=== PATIENT | female | born 1995 | race Caucasian/White ===

== ENCOUNTER 2022-04-25 19:19 | Emergency (ER) | payer MEDICAID, SELFPAY ==
[2022-04-25 19:21] VITALS: BP 142/86; PULSE 77; RESP 16; TEMP 36.6; O2SAT 99; BMI 39.4
--- NOTE | 2022-04-25 20:10 | CT_ITS ---
PROCEDURE INFORMATION: Exam: CT Abdomen And Pelvis With Contrast Exam date and time: 04/25/2022 8:18 PM Age: 26 years old Clinical indication: Abdominal pain; Flank; Patient HX: RT lbp, llq, rlq pain w pain under bilat breast in ribs. PT unable to urinate x 4 days w constipation. HX of ibs. ; Additional info: Abd pain TECHNIQUE: Imaging protocol: Computed tomography of the abdomen and pelvis with contrast. Radiation optimization: All CT scans at this facility use at least one of these dose optimization techniques: automated exposure control; mA and/or kV adjustment per patient size (includes targeted exams where dose is matched to clinical indication); or iterative reconstruction. Contrast material: ISOVUE; Contrast volume: 75 ml; Contrast route: IV; COMPARISON: No relevant prior studies available. FINDINGS: Tubes, catheters and devices: None noted. Lungs: Lung bases appear clear. Heart: No significant coronary calcifications. No cardiomegaly. No significant pericardial effusion. Liver: Normal. No mass. Gallbladder and bile ducts: Cholelithiasis. No ductal dilation. Pancreas: Normal. No ductal dilation. Spleen: Normal. No splenomegaly. Adrenal glands: Normal. No mass. Kidneys and ureters: Normal. No hydronephrosis. Stomach and bowel: Unremarkable. No obstruction. No mucosal thickening. Appendix: Appendix is well visualized. No evidence of appendicitis. Intraperitoneal space: Unremarkable. No free air. No significant fluid collection. Retroperitoneal space: No significant retroperitoneal inflammatory changes are noted. Vasculature: Unremarkable. No abdominal aortic aneurysm. Lymph nodes: Unremarkable. No enlarged lymph nodes. Urinary bladder: Unremarkable as visualized. Reproductive: 4.7 cm left ovarian cyst. Bones/joints: Unremarkable. No acute fracture. Soft tissues: Unremarkable. IMPRESSION: 1. Cholelithiasis. 2. 4.7 cm left ovarian cyst. 3. No CT evidence of appendicitis.
--- NOTE | 2022-04-25 20:11 | PC.NURSE ---
dr Arreola gave verbal orders for lab work on pt after seeing pt at bedside. no medication ordered at this time
[2022-04-25 20:16] LABS: Microscopic, Urine URINE MICROSCOPIC (MICROSCOPIC)
[2022-04-25 20:30] LABS: Alanine Aminotransferase 21 U/L (12-78); Albumin Level 4.4 g/dl (3.5-5.0); Albumin/Globulin Ratio 1.5 (1.1-1.8); Alkaline Phosphatase 76 U/L (38-126); Amylase 76 U/L (30-110); Anion Gap 14.9 mEq/L (5-15); Aspartate Amino Transferase 37 U/L (14-36); Bilirubin,Total 0.2 mg/dl (0.2-1.3); Blood Urea Nitrogen 10 mg/dl (7-17); Calcium 8.7 mg/dl (8.4-10.2); Carbon Dioxide 26 mmol/L (22.0-30.0); Chloride 101 mmol/L (98-107); Creatinine Clearance Estimated 201 mL/min (50-200); Estimated Glomerular Filt Rate 101 ml/min (>60); GFR (African American) 122 ML/MIN (>60); Globulin 2.9 g/dL (1.3-3.2); Glucose 85 mg/dl (74-100); Lipase 95 U/L (23-300); Potassium 3.9 mmoL/L (3.5-5.1); Sodium 138 mmol/L (136-145); Total Protein,Serum 7.3 g/dl (6.3-8.2)
[2022-04-25 20:33] LABS: Urine Pregnancy, HCG Qual. Negative (Negative)
[2022-04-25 20:34] LABS: Appearance,Urine SL CLOUDY (Clear); Bilirubin,Urine Negative (Negative); Blood, Urine Negative (Negative); Color,Urine YELLOW (Yellow); Glucose,Urine (UA) Negative (Negative); Ketones,Urine Negative (Negative); Leukocyte Esterase,Urine 1+ (Negative); Nitrate,Urine POSITIVE (Negative); Protein,Urine TRACE (Negative); Urobilinogen,Urine 0.2 EU/dl (0.2)
[2022-04-25 20:36] LABS: C-Reactive Protein 6.3 mg/L (0-4)
--- NOTE | 2022-04-25 20:41 | [facility].EDABDPAI ---
Discharge Plan Disposition Patient Disposition: Home, Self-Care Prescriptions Prescriptions: New levofloxacin 500 mg tablet 500 mg PO DAILY Qty: 7 0RF Referrals Follow up/Referrals: Provider,Referral, MD [Primary Care Provider] - See instructions Clinical Impressions Clinical Impression: UTI (urinary tract infection), Irritable bowel syndrome (IBS) Instructions Patient Instructions: DI for Urinary Tract Infection (UTI), DI for Acute Abdominal Pain Discharge ED Provider: Travis Arreola Abdominal Pain HPI General Chief Complaint: Abdominal Pain Stated Complaint: cant urinate, adm pain Time Seen by Provider: 04/25/22 20:00 Mode of Arrival: Ambulatory Source of Information: Patient and Medical Record Limitations: No Limitations Description of Symptoms (Recalled from ER Triage Doc. by RN): pt states that she is having severe abdominal pain and pressure in her vagina. the pt states that she thought that she was having a uti and started taking azo sunday the pt states she has a hx of IBS but has not had a bm since sunday when she had to take laxitives. History of Present Illness HPI narrative: over the last few days abd pain with pressure sensation and hx of ibs-d - no fever - feels constipated and diff urinating - MD complaint: abdominal pain Onset (ago): day(s) Consistency: intermittent Location: diffuse Severity: moderate Quality: cramping Associated symptoms: denies other symptoms Related Data Previous Rx's Medication Instructions Recorded levofloxacin 500 mg tablet 500 mg PO DAILY #7 tabs 04/25/22 Allergies Allergy/AdvReac Type Severity Reaction Status Date / Time No Known Allergies Allergy Verified 04/25/22 20:00 [facility] Social History Smoking Status: Current every day smoker alcohol intake: never current occupational status: employed Travel in the last 8 weeks: None ROS Obtained: Yes All systems reviewed & no additional complaints except as documented Physical Exam General General appearance: alert Head Head exam: normocephalic Eye Eye exam: Present PERRL and EOMI; Absent scleral icterus ENT ENT exam: Present mucous membranes moist Neck Neck exam: Present full ROM and trachea midline Respiratory Respiratory exam: Present normal lung sounds bilaterally; Absent respiratory distress Cardiovascular Cardiovascular exam: Present regular rate Abdominal Exam Abdominal exam: Present soft and tenderness; Absent guarding or rebound Abdominal tenderness: Present LUQ and moderate Extremities Exam Extremities exam: Present normal capillary refill Back Exam Back exam: Absent CVA tenderness (L) Neurological Exam Neurological exam: Present alert, oriented X3 and CN II-XII intact Psychiatric Psychiatric exam: Present normal affect Skin Skin exam: Absent rash Medical Decision Making Medical Records Medical records reviewed: Yes I reviewed the patient's medical records. Denzel Inquiry Pt receiving controlled substance: No Vital Signs: 04/25/22 19:21 Temperature 97.9 F Temperature Source Oral Pulse Rate [Left] 77 Respiratory Rate 16 Blood Pressure [Right Arm] 142/86 H Blood Pressure Mean [Right Arm] 104 02 Sat by Pulse Oximetry 99 Oxygen Delivery Method Room Air Lab Data Lab results reviewed: Yes I reviewed the patient's lab results. Lab Results 04/25/22 19:30: Urine Color Yellow, Urine Appearance Sl cloudy, Urine pH 7.0, Ur Specific [place] 1.020, Urine Protein Trace, Urine Glucose (UA) Negative, Urine Ketones Negative, Urine Blood Negative, Urine Nitrate Positive, Urine Bilirubin Negative, Urine Urobilinogen 0.2, Ur Leukocyte Esterase 1+ A, Urine RBC None, Urine WBC 5-10, Ur Squamous Epith Cells Occasional, Urine Bacteria 4+ 04/25/22 19:30: Urine HCG, Qual Negative 04/25/22 19:39: WBC 11.1 H, RBC 4.76, Hgb 13.9, Hct 51.5 H, MCV 108.1 H, MCH 29.1, MCHC 26.9 L, RDW 19.9 H, Plt Count 242, MPV 23.9 H, Neut % (Auto) 61.3, Lymph % (Auto) 33.6, [place] % (Auto) 4.2, Eos
[2022-04-25 20:45] LABS: Basophils # 0.6 K/mm3 (0-0.2); Eosinophils # 0.1 K/mm3 (0.0-0.4); Eosinophils % 0.9 % (0.1-12.0); Hematocrit 51.5 % (37.0-47.0); Hemoglobin 13.9 g/dL (12.2-16.2); Lymphocytes # 3.8 K/mm3 (0.7-4.5); Lymphocytes % 33.6 % (10-50); Mean Corpuscular HGB Conc 26.9 g/dL (31.8-35.4); Mean Corpuscular Hemoglobin 29.1 pg (27.0-31.2); Mean Corpuscular Volume 108.1 fl (81-99); Mean Platelet Volume 23.9 fl (7.4-10.4); Monocytes # 0.5 K/mm3 (0.1-1.0); Monocytes % 4.2 % (1.7-9.3); Neutrophils # 6.8 K/mm3 (1.8-7.8); Neutrophils % 61.3 % (37.0-80.0); Platelet Count 242 K/mm3 (142-424); Red Blood Count 4.76 M/mm3 (4.20-5.40); Red Cell Distribution Width 19.9 % (11.5-17.5); White Blood Count 11.1 K/mm3 (4.8-10.8)
[2022-04-25 20:50] LABS: T4 (Thyroxine) 8.5 ug/dl (5.53-11.0)
[2022-04-25 21:03] LABS: Thyroid Stimulating Hormone 1.53 uIU/mL (0.465-4.68)
[2022-04-25 21:12] LABS: Bacteria,Urine 4+ /lpf; Squamous Epithelial Cell,Urine Occasional #/hpf (0-5)
[2022-04-25 21:29] LABS: Erythrocyte Sedimentation Rate 12 mm/hr (0-20)
[2022-04-25 22:50] VITALS: BP 142/86; PULSE 88; RESP 16; TEMP 36.6; O2SAT 99
== END 2022-04-25 22:15 | disposition home or self-care (01) ==
PROVIDERS: Emergency Provider Emergency Medicine
DX: K58.9 Irritable bowel syndrome, unspecified; N39.0 Urinary tract infection, site not specified
CPT/HCPCS: 74177; 80053; 81001; 81025; 82150; 83690; 84436; 84443; 85025; 85651; 86140; 87086; 87088; 87186; 96365; 99284; J0696; Q9967

== ENCOUNTER → 2023-02-15 16:44 | Outpatient (CLI) | payer MEDICAID, SELFPAY ==
[2023-02-15 16:31] LABS: Basophils % 0.3 % (0.1-2.0); Eosinophils # 0.1 K/mm3 (0.0-0.4); Eosinophils % 1.3 % (0.1-12.0); Hematocrit 43.6 % (37.0-47.0); Hemoglobin 14.1 g/dL (12.2-16.2); Lymphocytes % 25.2 % (10-50); Mean Corpuscular HGB Conc 32.5 g/dL (31.8-35.4); Mean Corpuscular Hemoglobin 29.3 pg (27.0-31.2); Mean Corpuscular Volume 90.2 fl (81-99); Mean Platelet Volume 8.6 fl (7.4-10.4); Monocytes # 0.4 K/mm3 (0.1-1.0); Monocytes % 4.3 % (1.7-9.3); Neutrophils # 5.5 K/mm3 (1.8-7.8); Neutrophils % 68.9 % (37.0-80.0); Platelet Count 323 K/mm3 (142-424); Red Blood Count 4.83 M/mm3 (4.20-5.40); Red Cell Distribution Width 13.7 % (11.5-17.5)
[2023-02-15 16:43] LABS: Alanine Aminotransferase 23 U/L (12-78); Albumin Level 4.1 g/dl (3.5-5.0); Albumin/Globulin Ratio 1.5 (1.1-1.8); Alkaline Phosphatase 61 U/L (38-126); Anion Gap 12.5 mEq/L (5-15); Aspartate Amino Transferase 25 U/L (14-36); Bilirubin,Total 0.3 mg/dl (0.2-1.3); Blood Urea Nitrogen 11 mg/dl (7-17); Calcium 8.8 mg/dl (8.4-10.2); Carbon Dioxide 28 mmol/L (22.0-30.0); Chloride 106 mmol/L (98-107); Estimated Glomerular Filt Rate 86 ml/min (>60); GFR (African American) 104 ML/MIN (>60); Globulin 2.7 g/dL (1.3-3.2); Glucose 82 mg/dl (74-100); Potassium 4.5 mmoL/L (3.5-5.1); Sodium 142 mmol/L (136-145); Total Protein,Serum 6.8 g/dl (6.3-8.2)
[2023-02-15 16:49] LABS: C-Reactive Protein 2.6 mg/L (0-4)
[2023-02-15 16:59] LABS: Erythrocyte Sedimentation Rate 8 mm/hr (0-20); Triiodothryronine (T3) Uptake 33 % (23.5-40.5)
[2023-02-15 17:03] LABS: Free T4 (Free Thyroxine) 0.94 ng/dl (0.78-2.19)
[2023-02-15 17:12] LABS: Thyroid Stimulating Hormone 0.89 uIU/mL (0.465-4.68)
[2023-02-17 10:19] LABS: RA Latex Turbid. <10.0 IU/mL (<14.0)
[2023-03-02 08:40] LABS: Antinuclear Antibodies (ANA) NEGATIVE
== END ==
PROVIDERS: PCP Nurse Practitioner Family; Visit Provider Nurse Practitioner Family
DX: M25.50 Pain in unspecified joint (principal); F41.9 Anxiety disorder, unspecified
CPT/HCPCS: 80053; 84436; 84439; 84443; 84479; 85025; 85651; 86038; 86140; 86225; 86235; 86431

== ENCOUNTER 2023-03-07 07:48 | Outpatient (RCR) | payer MEDICAID, SELFPAY | END 2023-04-10 13:45 | disposition home or self-care (01) | LOC: PT 07:48 | PROVIDERS: PCP Nurse Practitioner Family; Visit Provider Nurse Practitioner Family | DX: M54.50 Low back pain, unspecified (principal); M25.561 Pain in right knee; M25.562 Pain in left knee; M25.50 Pain in unspecified joint; Z87.39 Personal history of other diseases of the musculoskeletal system and connective tissue | CPT/HCPCS: 97163 ==

== ENCOUNTER 2024-10-22 18:35 | Outpatient (CLI) | payer MEDICAID, SELFPAY ==
[2024-10-24 05:08] LABS: Hepatitis B Surf Ab Quant <3.5 mIU/mL (Immunity>10)
[2024-10-24 06:41] LABS: Measles Antibodies, IgG >300.0 AU/mL (Immune >16.4); Mumps Abs, IgG 48.6 AU/mL (Immune >10.9); Rubella Antibodies, IgG 1.89 index (Immune >0.99); Varicella Zoster IgG Non Reactive (Non Reactive)
== END 2024-10-22 23:59 | disposition home or self-care (01) ==
LOC: LAB 18:38
PROVIDERS: Nurse Practitioner Family; PCP Family Medicine; Visit Provider Family Medicine
DX: Z02.0 Encounter for examination for admission to educational institution (principal)
CPT/HCPCS: 36415; 86706; 86735; 86762; 86765; 86787

== ENCOUNTER 2025-03-05 13:19 | Outpatient (CLI) | payer SELFPAY ==
[2025-03-05 13:33] LABS: COC Drug Screen Collection Only
== END 2025-03-05 23:59 | disposition home or self-care (01) ==
LOC: LAB 13:20
DX: R69 Illness, unspecified (principal)

== ENCOUNTER 2025-04-06 08:45 | Outpatient (CLI) | payer MEDICAID, SELFPAY | END 2025-04-06 23:59 | disposition home or self-care (01) | LOC: LAB.DROPOF 04-07 13:08 | PROVIDERS: PCP Nurse Practitioner Family; Visit Provider Nurse Practitioner Family | DX: J02.9 Acute pharyngitis, unspecified (principal) | CPT/HCPCS: 87070 ==

== ENCOUNTER 2025-06-03 10:35 | Outpatient (CLI) | payer MEDICAID, SELFPAY | END 2025-06-03 23:59 | disposition home or self-care (01) | LOC: LAB.DROPOF 06-04 10:56 | PROVIDERS: PCP Nurse Practitioner Family; Visit Provider Nurse Practitioner Family | DX: J02.9 Acute pharyngitis, unspecified (principal) | CPT/HCPCS: 87070 ==